=== PATIENT | female | born 1960 | race Caucasian/White ===

== ENCOUNTER 2018-04-01 10:27 | Day surgery (SDC) | payer OTHER ==
[2018-03-27 11:20] VITALS: BMI 28.5
[2018-04-01] MEDS ORDERED: LACTATED RINGERS SOLUTION 1,000 ML IV SCH ×2 (12:00→14:30)
[2018-04-01] MEDS ORDERED: MIDAZOLAM HCL 2 MG/2 ML SINGLE DOSE VIAL ONE (12:37)
[2018-04-01] MEDS ORDERED: PROPOFOL 20 ML ONE (12:39)
[2018-04-01] MEDS ORDERED: ROCURONIUM BROMIDE 50 MG/5 ML VIAL ONE (12:39)
[2018-04-01] MEDS ORDERED: ceFAZolin SODIUM 1 GM VIAL IVPB ONE (12:45)
[2018-04-01] MEDS ORDERED: BUPIVACAINE HCL/PF 0.5% (5MG/ML) 10 ML VIAL ONE (13:50)
[2018-04-01] MEDS ORDERED: BUPIVACAINE HCL/PF 0.5% (5MG/ML) 10 ML VIAL IJ ONE (14:07)
--- NOTE | 2018-04-01 14:13 | SURG ---
Surgery Upper Stitcher Note Upper Stitcher: Nikolay Duval PA-C Date of Service: 04/01/18 Diagnosis: Toxic goiter Procedure: Total thyroidectomy I was present for the entirety of the operative procedure. For further detail, please refer to operative report. Visit type - Case Type Case Type: Scheduled Admission - New patient This patient is new to me today: Yes Date on this admission: 04/01/18
[2018-04-01] MEDS ORDERED: ALBUTEROL SO4 18 GM HFA INHALER IH PRN ×3 (14:14→14:56)
[2018-04-01] MEDS ORDERED: ACETAMINOPHEN 1000 MG/100 ML VIAL (NON FORMULARY) IVPB ONE (15:00)
--- NOTE | 2018-04-01 15:21 | OP ---
DATE OF OPERATION: 04/01/2018 PREOPERATIVE DIAGNOSIS: Thyrotoxic nodular/multinodular goiter. POSTOPERATIVE DIAGNOSIS: Thyrotoxic nodular/multinodular goiter. OPERATIVE PROCEDURE: Total thyroidectomy. SURGEON: Evy Gutierrez MD SPORTS EQUIPMENT REPAIRER: JARON Link ANESTHESIA: General endotracheal intubation. Patient was admitted with a history of multinodular goiter with thyrotoxicosis and patient has other medical problems including multiple sclerosis and general weakness. With that, with the medication, patient was not doing well; so, she elected to have a thyroidectomy. After explaining risks and benefits, the patient was brought to the operating room. Neck was prepped and draped, and general anesthesia was given. of neck was extended, and incision was made in the anterior neck. A flap was created above and below with the subplatysmal plane, and the midline was opened. The thyroid gland was identified. The strap muscles were dissected laterally, and medial rotation of the thyroid gland was done. The superior laryngeal nerve was identified and so was the recurrent laryngeal nerve bilaterally, and care was taken to avoid injuring them. The superior vessels were taken right at the gland level and inferior away from the thyroid gland. Then, the isthmus of the thyroid gland was taken away from the tracheal attachment. There were a lot of adhesions of the muscle to the thyroid in the beginning of the surgery, and so, making the dissection a little more tedious than normal, but no complications were encountered. After adequate hemostasis, the strap muscles were closed, and the platysma was closed subcuticular. Local Marcaine was injected. Patient went to the recovery room, and the right superior parathyroid gland was identified and preserved. EVY GUTIERREZ M.D. [id number] cc: Lyric Gutierrez MD
[2018-04-01] MEDS ORDERED: ONDANSETRON 4 MG/2 ML VIAL ONE (15:37)
[2018-04-01] MEDS ORDERED: ONDANSETRON 4 MG/2 ML VIAL IVPUSH PRN (15:51)
[2018-04-01] MEDS: ACETAMINOPHEN 325 MG TABLET (FP) PO PRN (20:52)
[2018-04-01] MEDS: METOPROLOL TARTRATE 50 MG TABLET (FP) PO SCH (21:11)
[2018-04-01] MEDS ORDERED: PATIENT'S OWN MEDICATION (NON-FORMULARY) (Sitagliptin Phos/Metformin Hcl [Janumet 50-1,000 PO SCH (22:00)
[2018-04-01] MEDS ORDERED: amLODIPine BESYLATE 5 MG TABLET (FP) PO SCH (22:00)
[2018-04-02] MEDS: ACETAMINOPHEN 325 MG TABLET (FP) PO PRN ×2 (02:10→07:00)
[2018-04-02] MEDS: METOPROLOL TARTRATE 50 MG TABLET (FP) PO SCH (09:46)
[2018-04-02] MEDS ORDERED: LOSARTAN POTASSIUM 50 MG TABLET (FP) PO SCH (10:00)
[2018-04-02] MEDS ORDERED: ASPIRIN 81 MG CHEWABLE TABLETS PO SCH (10:00)
[2018-04-02] MEDS ORDERED: sitaGLIPtin PHOSPHATE 100 MG TABLET (FP) PO SCH (12:03)
[2018-04-02 14:09] VITALS: BP 122/66; PULSE 92; TEMP 98.6
[2018-04-02] MEDS ORDERED: PATIENT'S OWN MEDICATION (NON-FORMULARY) (Sitagliptin Phos/Metformin Hcl [Janumet 50-1,000 PO SCH (22:00)
--- NOTE | 2018-04-04 09:51 | PATH ---
Surgical Pathology Report Patient Name: SOPHIA HOWARD [facility] [place]. Rec. #: [id number] /Age/Gender: 1960 (Age: 58) / F Account: [id number] Location: AMBULATORY SURG Taken: 04/01/2018 Received: 04/02/2018 Reported: 04/04/2018 Physicians: Wesley Gutierrez M.D. Specimen(s) Received TOTAL THYROID Clinical History Toxic goiter Final Diagnosis THYROID, TOTAL THYROIDECTOMY: NON-INVASIVE FOLLICULAR THYROID NEOPLASM WITH PAPILLARY LIKE NUCLEAR FEATURES (NIFTP). NEOPLASM IS LOCATED AT THE RIGHT LOBE AND MEASURES 4 MM IN GREATEST MICROSCOPIC DIMENSION. SURGICAL MARGINS ARE NEGATIVE. REMAINDER OF THYROID PARENCHYMA SHOWS MULTI NODULAR HYPERPLASIA AND CHRONIC LYMPHOCYTIC THYROIDITIS. ONE BENIGN LYMPH NODE (0/1). ONE PARATHYROID GLAND. Comment: Office of Dr. Gutierrez informed that significant findings will be faxed (). Electronically Signed Sophia Jiménez M.D. Gross Description Received in formalin labeled "total thyroid gland," is a 17 g total thyroidectomy specimen. The outer capsule is intact. The right lobe (4.0 x 2.3 x 1.8 cm) is inked red, the left lobe (4.0 x 2.3 x 1.7 cm) is inked blue and the isthmus (1.8 x 1.7 x 0.6 cm) is inked green. Sectioning reveals a 0.4 x 0.4 x 0.4 cm law, solid nodule in the central to inferior pole of the right lobe. The nodule is 0.1 cm from the outer capsule. The remaining thyroid parenchyma is law-brown with focal small nodules. The specimen is entirely submitted in 18 cassettes as follows: 1-8-right lobe sequentially submitted from superior to inferior (solid nodule in cassettes 5-6); 0-98-Tjhrzvi submitted from left to right; 11-18-left lobe sequentially submitted from superior to inferior. /04/02/201804/02/2018
== END 2018-04-02 17:42 | disposition home or self-care (01) ==
LOC: JASUSAT 10:27 → J8W 19:45 → JASUSAT 04-02 17:42
PROVIDERS: ATTEND Surgery Vascular Surgery
PROC: 0GBJ0ZZ Excision of Thyroid Gland Isthmus, Open Approach (ICD-10-PCS; 2018-04-01)
PROC: 0GTK0ZZ Resection of Thyroid Gland, Open Approach (ICD-10-PCS; principal; 2018-04-01 13:30)
DX: E05.20 Thyrotoxicosis with toxic multinodular goiter without thyrotoxic crisis or storm (principal); D44.0 Neoplasm of uncertain behavior of thyroid gland
CPT/HCPCS: 36415; 82310; 82962; 86850; 86900; 86901; 88307-TC; 94760; J0131